=== PATIENT | male | born 1975 | race Caucasian/White ===

== ENCOUNTER 2019-06-11 05:08 | Emergency (ER) | payer BC, SELFPAY ==
[2019-06-11] MEDS ORDERED: HYDROcodone/Acetaminophen 5/325 mg Tablet ONE (05:24)
[2019-06-11] MEDS ORDERED: Cyclobenzaprine 10 MG TAB ONE (05:24)
== END 2019-06-11 05:38 | disposition home or self-care (01) ==
LOC: ERS 05:08
DX: M54.5 Low back pain (principal)
CPT/HCPCS: 99283

== ENCOUNTER 2020-10-09 23:05 | Emergency (ER) | payer BC, SELFPAY ==
[2020-10-10 00:14] LABS: #Basophils 0.1 thou/uL (0.0-0.2); #Eosinphils 0.4 thou/uL (0.0-0.7); #Lymphocytes 1.5 thou/uL (1.20-3.40); #Monocytes 0.4 thou/uL (0.11-0.59); #Neutrophils 2.8 thou/uL (1.40-6.50); %Basophils 1.2 % (0.0-1.0); %Lymphocytes 28.5 % (21.0-51.0); %Monocytes 7.9 % (0.0-10.0); %Neutrophils 54.4 % (42.0-75.0); Hemoglobin 15.8 g/dL (14.0-18.0); Mean Corpuscular Hemoglobin 32.5 pg (27.0-31.0); Mean Corpuscular Volume 92.8 fL (78.0-98.0); Platelet Count 228 thou/uL (130-400); RBC Distribution Width 11.1 % (11.5-14.5); Red Blood Cell (RBC) Count 4.85 mill/uL (4.70-6.10); White Blood Cell (WBC) Count 5.2 thou/uL (4.8-10.8)
[2020-10-10 00:34] LABS: ALT (SGPT) 45 U/L (8-55); AST (SGOT) 33 U/L (5-34); Albumin 4.4 g/dL (3.5-5.0); Alkaline Phosphatase 67 U/L (40-110); Anion Gap 10 mmol/L (10-20); BUN (Urea Nitrogen) 19 mg/dL (8.9-20.6); Bilirubin, Total 0.3 mg/dL (0.2-1.2); CK (CPK) 154 U/L (30-200); Calc. Creatinine Clearance 0 mL/min (70-130); Calcium 9.2 mg/dL (7.8-10.44); Carbon Dioxide 26 mmol/L (22-29); Chloride 106 mmol/L (98-107); Globulin 2.8 g/dL (2.4-3.5); Glucose 95 mg/dL (70-105); Lipase 34 U/L (8-78); Potassium 4.2 mmol/L (3.5-5.1); Protein, Total 7.2 g/dL (6.0-8.3); Sodium 138 mmol/L (136-145)
[2020-10-10 03:28] LABS: Troponin I Less than 0.010 ng/mL (< 0.028)
== END 2020-10-10 03:51 | disposition home or self-care (01) ==
LOC: ERS 23:05
DX: R00.2 Palpitations (principal); R07.9 Chest pain, unspecified; Z86.16 Personal history of COVID-19
CPT/HCPCS: 36415; 71045; 80053; 82550; 83690; 84484; 85025; 93005

== ENCOUNTER 2021-04-13 19:30 | Outpatient (CLI) | payer BC | END 2021-04-13 19:31 | disposition home or self-care (01) | LOC: SLEEPLAB 19:30 | PROVIDERS: ATTEND Nurse Practitioner Family | DX: R00.2 Palpitations (principal); I45.5 Other specified heart block; G47.33 Obstructive sleep apnea (adult) (pediatric) | CPT/HCPCS: 95810 ==

== ENCOUNTER 2021-04-25 19:30 | Outpatient (CLI) | payer BC | END 2021-04-25 19:31 | disposition home or self-care (01) | LOC: SLEEPLAB 19:30 | PROVIDERS: ATTEND Nurse Practitioner Family | DX: G47.33 Obstructive sleep apnea (adult) (pediatric) (principal); I45.5 Other specified heart block; R00.2 Palpitations | CPT/HCPCS: 95811 ==